=== PATIENT | female | born 2000 | race Caucasian/White ===

== ENCOUNTER 2022-03-30 16:02 | Outpatient (CLI) | payer MEDICAID, SELFPAY ==
[2022-03-30 22:13] LABS: TSH With Reflex to FT4* 0.855 uIU/mL (0.270-4.200)
== END 2022-03-30 16:03 | disposition home or self-care (01) ==
PROVIDERS: PCP Physician Assistant Medical; Visit Provider Physician Assistant Medical
DX: R14.0 Abdominal distension (gaseous) (principal); K59.00 Constipation, unspecified; N92.6 Irregular menstruation, unspecified
CPT/HCPCS: 83516; 84443

== ENCOUNTER 2022-04-01 17:01 | Outpatient (CLI) | payer MEDICAID, SELFPAY ==
--- NOTE | 2022-04-01 17:00 | CRLHL7_ITS ---
For Patients: As a result of the Century Cures Act, medical imaging exams and procedure reports are released immediately into your electronic medical record. You may view this report before your referring provider. If you have questions, please contact your health care provider. INDICATION: IRREGULAR MENSTRUATION COMPARISON: none TECHNIQUE: 2D preciado scale and color Doppler images were acquired of the pelvis using a transabdominal and transvaginal approach. FINDINGS: Sonographic images demonstrate a normal size and smooth outer contour of the uterus. Uterus measures 8.3 cm in length by 3.4 cm in AP diameter by 5.1 cm in transverse dimension. The myometrium has a normal uniform echotexture. The endometrial lining appears normal and measures 10 mm in composite thickness. The right ovary measures 4.6 x 1.8 x 2.2 cm in size and the left ovary measures 4.2 x 1.8 x 2.4 cm. The ovaries demonstrate normal arterial and venous blood flow on color Doppler analysis. There are no suspicious fluid collections within the cul-de-sac. IMPRESSION: Normal pelvic ultrasound. Dictated by Khanh Blood MD @ 04/02/2022 9:00:16 AM (Electronically Signed)
== END 2022-04-01 17:02 | disposition home or self-care (01) ==
PROVIDERS: PCP Physician Assistant Medical; Visit Provider Physician Assistant Medical
DX: N92.6 Irregular menstruation, unspecified (principal)
CPT/HCPCS: 76830; 76856; 93976

== ENCOUNTER 2023-01-25 17:31 | Outpatient (CLI) | payer MEDICAID, SELFPAY | END 2023-01-25 17:32 | disposition home or self-care (01) | PROVIDERS: PCP Physician Assistant Medical; Visit Provider Registered Nurse | DX: N92.6 Irregular menstruation, unspecified (principal); R53.83 Other fatigue; F41.9 Anxiety disorder, unspecified | CPT/HCPCS: 82306; 82607; 83498; 84146; 84270; 84402; 84403; 84443 ==

== ENCOUNTER 2023-05-06 14:47 | Outpatient (CLI) | payer MEDICAID, SELFPAY | END 2023-05-06 14:48 | disposition home or self-care (01) | PROVIDERS: PCP Physician Assistant Medical; Visit Provider Internal Medicine Cardiovascular Disease | DX: R00.2 Palpitations (principal); R53.83 Other fatigue; F41.9 Anxiety disorder, unspecified; K21.9 Gastro-esophageal reflux disease without esophagitis; Z79.899 Other long term (current) drug therapy | CPT/HCPCS: 82533; 82728 ==

== ENCOUNTER 2023-09-02 10:52 | Outpatient (CLI) | payer MEDICAID, SELFPAY ==
--- NOTE | 2023-09-02 11:00 | CRLHL7_ITS ---
For Patients: As a result of the Century Cures Act, medical imaging exams and procedure reports are released immediately into your electronic medical record. You may view this report before your referring provider. If you have questions, please contact your health care provider. INDICATION: BLOATING COMPARISON: 08.31.21 TECHNIQUE: Real time preciado scale imaging and color Doppler analysis was performed of the right upper quadrant. FINDINGS: The patient`s liver is of normal size and has uniform echogenicity. There is a normal appearance of the hepatic IVC and proximal abdominal aorta. There is no evidence of ascites. The gallbladder is of normal size and there is no evidence of intraluminal stones or sludge. The gallbladder wall measures 1.2 mm in thickness. The common bile duct is of normal size and measures 2.4 mm in diameter at the level of the andrew hepatis. The pancreas appears normal. There is no evidence of a stone or hydronephrosis within the right kidney. The right kidney measures 11.3 cm in length. IMPRESSION: Normal right upper quadrant ultrasound. Dictated by Khanh Blood MD @ 09/02/2023 1:22:35 PM (Electronically Signed)
== END 2023-09-02 10:53 | disposition home or self-care (01) ==
LOC: US 10:54
PROVIDERS: PCP Physician Assistant Medical; Visit Provider Internal Medicine Gastroenterology
DX: R14.0 Abdominal distension (gaseous) (principal)
CPT/HCPCS: 76705

== ENCOUNTER 2024-01-13 12:10 | Outpatient (CLI) | payer MEDICAID, SELFPAY ==
[2024-01-14 00:13] LABS: Chlamydia DNA Amplified* NOT DETECTED (No Detected); GC DNA Amplified* NOT DETECTED (No Detected)
== END 2024-01-13 12:11 | disposition home or self-care (01) ==
PROVIDERS: PCP Family Medicine; Visit Provider Family Medicine
DX: R30.0 Dysuria (principal); F41.9 Anxiety disorder, unspecified; R53.83 Other fatigue; F98.8 Other specified behavioral and emotional disorders with onset usually occurring in childhood and adolescence; Z11.3 Encounter for screening for infections with a predominantly sexual mode of transmission
CPT/HCPCS: 80053; 86592; 86703; 87491; 87591

== ENCOUNTER 2024-05-23 23:43 | Emergency (ER) | payer MEDICAID, SELFPAY ==
[2024-05-23 23:53] VITALS: BP 117/56; PULSE 71; RESP 16; TEMP 36.3; O2SAT 99; BMI 19.8
--- NOTE | 2024-05-23 23:59 | ED_ITS ---
HPI - Abdominal Pain General Time Seen by Provider: 23:59 Date Seen: 05/23/24 Chief Complaint: Abdominal Pain Stated Complaint: upper abdominal pain Time Seen by Provider: 05/23/24 23:59 Source: patient, RN notes reviewed and old records reviewed Mode of arrival: ambulatory Limitations: no limitations History of Present Illness HPI narrative: 33-year-old female who presents today with upper abdominal pain. Started this evening, has been vomiting as well. Pain is in the right upper quadrant, radiates distally little bit in the back. Worse with movement, does wax and wane. Had some urinary frequency earlier in the day but no hematuria or dysuria. Related Data Previous Rx's ?Medication ?Instructions ?Recorded norgestrel 0.075 mg tablet 1 tab PO QDAY #84 tabs 01/13/24 dextroamphetamine-amphetamine ER 10 mg PO QAM #30 caps 05/03/24 10 mg 24hr capsule,extend release (Adderall XR) dextroamphetamine-amphetamine ER 15 mg PO QAM #30 caps 05/03/24 15 mg 24hr capsule,extend release Allergies Allergy/AdvReac Type Severity Reaction Status Date / Time No Known Allergies Allergy Unknown Verified 01/13/24 11:53 PFSH [facility] Medical History (Updated 05/24/24 @ 01:27 by Manan Lobo MD) GERD (gastroesophageal reflux disease) ?K21.9 - Gastro-esophageal reflux disease without esophagitis (ICD-10) Family History Mother Anemia Family/Other Stroke High blood pressure Breast cancer Uncle Diabetes FH: mental illness Grandmother FH: mental illness Other Alcohol dependence Social History Narrative: Depo-Provera contraceptive status Does not drink alcohol Does not use illicit drugs Nonsmoker Smoking Status: Former smoker How often do you have a drink containing alcohol: never AUDIT-C Alcohol total score: 0 Non-prescribed substance use: denies use Little interest or pleasure in doing things: not at all Feeling down, depressed, or hopeless: not at all Exam Narrative: Exam Narrative: General: Well-developed and well-nourished, no acute distress Head: Atraumatic and normocephalic Eyes: Pupils are equal reactive, extraocular motions intact, conjunctiva clear ENT: External nose and ears are normal, posterior pharynx without erythema or exudate Neck: No midline cervical tenderness, full spontaneous range of motion the neck, trachea midline, no adenopathy Heart: Regular rate and rhythm no murmurs or thrills Lungs: Clear to auscultation bilaterally without wheezes or crackles Abdomen: Right upper quadrant tenderness, right CVA tenderness Musculoskeletal: No tenderness, deformity, or edema Neurologic: Awake, alert, and oriented x3, no gross focal neurologic deficits, cranial nerves intact as tested Psych: Mood and affect are appropriate Skin: No rashes Const: Vital Signs, click to edit/add: Vital Signs - 24 hr 05/23/24 23:53 05/24/24 00:16 Temperature 97.3 F L 97.3 F L Pulse Rate [Pulse Oximeter] 71 Respiratory Rate 16 Blood Pressure [Ri ght Upper Arm] 117/56 L Pulse Oximetry 99 Oxygen Delivery Me thod Room Air Course Course ED Course: Patient seen examined, reviewed prior office visit from July 2023 which was abdominal distension thought to be related to constipation and patient was treated symptomatically. Patient presents today with right upper quadrant pain. She has tenderness on exam but also CVA tenderness and says the pain does wonder back little bit. Initial complaint sounds most like biliary colic or acute cholecystitis insert early exam would be consistent without, patient does have CVA tenderness which could be from a kidney stone as well. Labs ordered CT scan ordered initially, consider right upper quadrant ultrasound depending on the labs and clinical course. Reevaluation(s) Time of Reevaluation #1: 00:43 Reevaluation #1: Labs independently interpreted by me with normal cbc, urinalysis with trace ketones and 3+ blood, patient is currently menstruating. CT scan of the abdomen and pelvis independently interpreted by me does not demonstrate acute obstructing stone, gallbladder appears well decompressed. Patient with increased pain and return of vomiting after coming back from CT, Dilaudid IV is ordered Time of Reevaluation #2: 00:48 Reevaluation #2: Labs independently interpreted by me with normal better panel, lipase minimally elevated at 306, just outside normal range. Time of Reevaluation #3: 01:24 Reevaluation #3: Reviewed radiology interpretation of CT scan which demonstrates 3 mm right UVJ stone. The patient recheck, she is pain-free now. Suspect that her spiking pain and nausea after CT was from passage of the stone in the bladder. We discussed etiology of kidney stones and treatment. Stable for discharge Vital Signs Vital signs: Initial Vital Signs Temperature 97.3 F L 05/23/24 23:53 Temperature Source Temporal Artery Scan 05/23/24 23:53 Pulse Rate 71 05/23/24 23:53 Respiratory Rate 16 05/23/24 23:53 Blood Pressure 117/56 L 05/23/24 23:53 Blood Pressure Mean 76 05/23/24 23:53 Blood Pressure Position Sitting 05/23/24 23:53 Pulse Oximetry 99 05/23/24 23:53 Oxygen Delivery Method Room Air 05/23/24 23:53 Vital Signs Temperature 97.3 F L 05/23/24 23:53 Pulse Rate 71 05/23/24 23:53 Respiratory Rate 16 05/23/24 23:53 Blood Pressure 117/56 L 05/23/24 23:53 Pulse Oximetry 99 05/23/24 23:53 Oxygen Delivery Method Room Air 05/23/24 23:53 Temperature 97.3 F L 05/24/24 00:16 Pulse Rate 71 05/23/24 23:53 Respiratory Rate 16 05/23/24 23:53 Blood Pressure 117/56 L 05/23/24 23:53 Pulse Oximetry 99 05/23/24 23:53 Oxygen Delivery Method Room Air 05/23/24 23:53 Medications Administered Medications: Discontinued Medications Generic Name Dose Route Start Last Admin Trade Name Freq PRN Reason Stop Dose Admin Ketorolac Tromethamine 15 mg 05/24/24 00:11 05/24/24 00:16 Ketorolac 15 Mg/Ml Inj IVP 05/24/24 00:12 15 mg ONCE ONE Administration Ondansetron HCl 4 mg 05/24/24 00:11 05/24/24 00:16 Ondansetron 2 Mg/Ml Inj IVP 05/24/24 00:12 4 mg ONCE ONE Administration MDM - Abdominal Pain Lab Data Labs: Lab Results 05/24/24 05/24/24 Range/Units 00:14 00:19 WBC 8.17 (4.50-11.00) K/uL RBC 4.15 (4.00-5.20) m/uL Hgb 13.0 (12.0-16.0) gm/dL Hct 39.6 (33.0-51.0) % MCV 95 (80-100) fL MCH 31 (26-34) pg MCHC 33 (32-36) gm/dL RDW Coeff of Amanda 12.2 (11.5-15.5) % Plt Count 251 (140-440) K/uL Neut % (Auto) 54.7 (42.0-72.0) % Lymph % (Auto) 37.6 (20-44) % [place] % (Auto) 5.1 (0.0-11.0) % Eos % (Auto) 1.5 (0.0-7.0) % Baso % (Auto) 0.4 (0.0-3.0) % Neut # (Auto) 4.47 (1.7-7.0) K/uL Lymph # (Auto) 3.07 H (0.90-2.90) K/uL [place] # (Auto) 0.40 (0.00-0.90) K/UL Eos # (Auto) 0.12 (0.00-0.50) K/uL Baso # (Auto) 0.03 (0.00-0.30) K/uL Abs Immat Gran (auto) 0.06 (0.00-0.30) K/uL Imm/Tot Granulo (auto) 0.7 % Sodium 140 (135-149) mmol/L Potassium 3.6 (3.6-5.1) mmol/L Chloride 102 (96-114) mmol/L Carbon Dioxide 27 (20-32) mmol/L Anion Gap 11 (7-15) mEq/L BUN 15 (5-24) mg/dL Creatinine 0.9 (0.5-1.5) mg/dL Estimated Creat Clear 92.04 Estimated GFR 93 ml/min Glucose 111 (60-115) mg/dL Calcium 9.7 (8.4-10.6) mg/dL Magnesium 2.0 (1.5-2.6) mg/dL Total Bilirubin 0.4 (0.1-1.5) mg/dL Direct Bilirubin 0.1 (0.0-0.5) mg/dL AST 21 (12-35) U/L ALT 15 (4-35) U/L Alkaline Phosphatase 53 (40-150) U/L Total Protein 8.1 (6.0-8.3) g/dL Albumin 4.8 (3.3-5.0) g/dL Lipase 306 H (23-300) U/L Urine Color Dark yellow (Yellow) Urine Appearance Slightly Cloudy A (Clear) Urine pH 6.0 (5.0-8.5) Ur Specific [place] >= 1.030 (1.000-1.030) Urine Protein 1+ A (Negative) Urine Glucose (UA) Negative (Negative) Urine Ketones Trace A (Negative) Urine Blood 3+ A (Negative) Urine Nitrite Negative (Negative) Urine Bilirubin Negative (Negative) Urine Urobilinogen 0.2 (0.2-1.0) Ur Leukocyte Esterase Negative (Negative) Urine RBC 5-10 A (0-2) Urine WBC 0-2 (0-5) Ur Squamous Epith Cells Few (None-Few) Urine Bacteria Few A (None) Urine Mucus Few A (None) Urine HCG, Qual Negative (Negative) Discharge Plan Discharge Clinical Impression: Calculus of distal right ureter Patient Disposition: Home, Self-Care Condition: Stable Instructions: How to Strain Your Urine (ED), Ureteral Stones (ED) Additional Instructions: Tylenol and ketorolac for pain Zofran for nausea Oxycodone as needed for more severe pain Follow-up with your primary care provider next week Strain urine and take the stone to your clinic if you are able to catch it Drink to thirst Activity Level: Activity as Tolerated Discharge Diet: Regular Prescriptions: No Action norgestrel 0.075 mg tablet 1 tab PO QDAY Qty: 84 3RF dextroamphetamine-amphetamine 15 mg capsule,extended release 24hr 15 mg PO QAM Qty: 30 0RF dextroamphetamine-amphetamine [Adderall XR] 10 mg capsule,extended release 24hr 10 mg PO QAM Qty: 30 0RF Follow Up/Referrals: Natalia Peterson MD [Primary Care Provider] - Stand Alone Forms: [employer] Info Instructions
--- NOTE | 2024-05-24 00:14 | CRLHL7_ITS ---
For Patients: As a result of the Century Cures Act, medical imaging exams and procedure reports are released immediately into your electronic medical record. You may view this report before your referring provider. If you have questions, please contact your health care provider. INDICATION: Right abdominal/flank pain. TECHNIQUE: CT abdomen and pelvis acquired with 100 cc Omnipaque 350 IV contrast. COMPARISON: None. FINDINGS: Lower chest: Unremarkable. Liver: Unremarkable. Normal in size and attenuation. No suspicious masses. Gallbladder and bile ducts: Unremarkable. No stones or inflammation. No biliary dilatation. Pancreas: Unremarkable. No mass or inflammation. Spleen: Unremarkable. Normal in size. No masses. Adrenal glands: Unremarkable. No nodules. Kidneys: Mild right-sided hydroureteronephrosis secondary to 3 millimeter obstructing right UVJ stone. GI tract: Unremarkable. Normal in caliber. No sign of mass or inflammation. Normal appendix. Vasculature: Abdominal aorta is normal in caliber. Mesenteric arteries are patent. Lymph nodes: No lymphadenopathy. Peritoneum/Abdominal Wall: Unremarkable. No sign of mass or infiltration. No free air or significant free fluid. Pelvis: Unremarkable. Bones: Unremarkable for age. IMPRESSION: Mild right-sided hydroureteronephrosis secondary to 3 millimeter obstructing right UVJ stone. Normal appendix. Please note that all CT scans at this facility use dose modulation, iterative reconstruction, and/or weight-based dosing when appropriate to reduce radiation dose to as low as reasonably achievable. Dictated by Dustin Gerardo MD @ 05/24/2024 1:20:04 AM (Electronically Signed)
[2024-05-24 00:16] VITALS: TEMP 36.3
[2024-05-24] MEDS: ONDANSETRON 2 MG/ML inj 4 MG IVP (00:16)
[2024-05-24] MEDS: KETOROLAC 15 MG/ML inj IVP (00:16)
[2024-05-24 00:17] LABS: Basophils Absolute Auto 0.03 K/uL (0.00-0.30); Basophils Percent Auto 0.4 % (0.0-3.0); Eosinophils Absolute Auto 0.12 K/uL (0.00-0.50); Eosinophils Percent Auto 1.5 % (0.0-7.0); Hematocrit 39.6 % (33.0-51.0); Immature Granulocytes Abs Auto 0.06 K/uL (0.00-0.30); Immature Granulocytes Pct Auto 0.7 %; Lymphocytes Absolute Auto 3.07 K/uL (0.90-2.90); Lymphocytes Percent Auto 37.6 % (20-44); Mean Corpuscular HGB Conc 33 gm/dL (32-36); Mean Corpuscular Hemoglobin 31 pg (26-34); Mean Corpuscular Volume 95 fL (80-100); Monocytes Percent Auto 5.1 % (0.0-11.0); Neutrophils Absolute Auto 4.47 K/uL (1.7-7.0); Neutrophils Percent Auto 54.7 % (42.0-72.0); Platelet Count* 251 K/uL (140-440); RDW Coefficient of Variation % 12.2 % (11.5-15.5); Red Blood Count 4.15 m/uL (4.00-5.20); White Blood Count* 8.17 K/uL (4.50-11.00)
[2024-05-24 00:21] LABS: Appearance Urine Slightly Cloudy (Clear); Bilirubin Urine Negative (Negative); Blood Urine 3+ (Negative); Color Urine Dark yellow (Yellow); Glucose Urine Negative (Negative); Ketones Urine Trace (Negative); Leukocyte Esterase Urine Negative (Negative); Nitrite Urine Negative (Negative); Protein Urine 1+ (Negative); Specific Gravity Urine >= 1.030 (1.000-1.030); Urobilinogen Urine 0.2 (0.2-1.0)
[2024-05-24 00:22] LABS: WBC Urine 0-2 (0-5)
[2024-05-24 00:23] LABS: Bacteria Urine Few; Mucus Urine Few; Squamous Epithelial Cell Urine Few (None-Few); Ur HCG Qualitative* Negative (Negative)
[2024-05-24 00:35] LABS: Albumin* 4.8 g/dL (3.3-5.0)
[2024-05-24 00:36] LABS: Chloride* 102 mmol/L (96-114); Potassium* 3.6 mmol/L (3.6-5.1); Sodium* 140 mmol/L (135-149)
[2024-05-24 00:37] LABS: Slide Review Reflex No
[2024-05-24 00:38] LABS: Alkaline Phosphatase* 53 U/L (40-150); Anion Gap 11 mEq/L (7-15); Aspartate Amino Transferase* 21 U/L (12-35); Bilirubin Direct* 0.1 mg/dL (0.0-0.5); Bilirubin Total* 0.4 mg/dL (0.1-1.5); Blood Urea Nitrogen* 15 mg/dL (5-24); Carbon Dioxide* 27 mmol/L (20-32); Creatinine* 0.9 mg/dL (0.5-1.5); Est. Creatinine Clearance* 92.04; Estimated Glomerular Filt Rate 93 ml/min; Total Protein* 8.1 g/dL (6.0-8.3)
[2024-05-24 00:39] LABS: Alanine Aminotransferase* 15 U/L (4-35); Calcium* 9.7 mg/dL (8.4-10.6); Glucose* 111 mg/dL (60-115); Lipase* 306 U/L (23-300)
[2024-05-24 01:33] VITALS: TEMP 36.7
[2024-05-24 01:36] VITALS: BP 120/74; PULSE 75; RESP 16; TEMP 36.7; O2SAT 99
== END 2024-05-24 01:37 | disposition home or self-care (01) ==
PROVIDERS: Emergency Provider Family Medicine; PCP Family Medicine
DX: N20.1 Calculus of ureter (principal)
CPT/HCPCS: 36415; 74177; 80048; 80076; 81001; 81025; 83690; 83735; 85025; 87086; 96374; 96375; 99284; J1885; J2405; Q9967

== ENCOUNTER 2024-05-25 10:26 | Emergency (ER) | payer MEDICAID, SELFPAY ==
[2024-05-25 10:33] VITALS: BP 131/80; PULSE 92; RESP 20; TEMP 37.2; O2SAT 98; BMI 19.8
--- NOTE | 2024-05-25 10:44 | ED_ITS ---
HPI - Abdominal Pain General Time Seen by Provider: 10:44 Date Seen: 05/25/24 Chief Complaint: Abdominal Pain Stated Complaint: Abdominal Pain Time Seen by Provider: 05/25/24 10:44 Source: patient, RN notes reviewed and old records reviewed Mode of arrival: ambulatory Limitations: no limitations History of Present Illness HPI narrative: 23-year-old female who presents today with abdominal pain. Patient was recently seen in the emergency department and diagnosed with distal ureteral stone in discharged with medication up with pain. Returns today with continued pain. Patient was doing well yesterday, then this morning about 2 hours prior to coming the emergency department pain increased again. Has not been taking anything for this, has oxycodone at home but did not take it as she was not at home when pain returned Related Data Previous Rx's ?Medication ?Instructions ?Recorded norgestrel 0.075 mg tablet 1 tab PO QDAY #84 tabs 01/13/24 dextroamphetamine-amphetamine ER 10 mg PO QAM #30 caps 05/03/24 10 mg 24hr capsule,extend release (Adderall XR) dextroamphetamine-amphetamine ER 15 mg PO QAM #30 caps 05/03/24 15 mg 24hr capsule,extend release Allergies Allergy/AdvReac Type Severity Reaction Status Date / Time No Known Allergies Allergy Unknown Verified 01/13/24 11:53 [facility] Medical History (Updated 05/25/24 @ 14:46 by Manan Lobo MD) GERD (gastroesophageal reflux disease) ?K21.9 - Gastro-esophageal reflux disease without esophagitis (ICD-10) Family History Mother Anemia Family/Other Stroke High blood pressure Breast cancer Uncle Diabetes FH: mental illness Grandmother FH: mental illness Other Alcohol dependence Social History Narrative: Depo-Provera contraceptive status Does not drink alcohol Does not use illicit drugs Nonsmoker Smoking Status: Former smoker Do you use any of these nicotine containing products: None How often do you have a drink containing alcohol: never How often do you have six or more drinks on one occasion: Never AUDIT-C Alcohol total score: 0 Non-prescribed substance use: denies use Little interest or pleasure in doing things: not at all Feeling down, depressed, or hopeless: not at all service: No Exam Narrative: Exam Narrative: General: Well-developed and well-nourished, no acute distress Head: Atraumatic and normocephalic Eyes: Pupils are equal reactive, extraocular motions intact, conjunctiva clear ENT: External nose and ears are normal, posterior pharynx without erythema or exudate Neck: No midline cervical tenderness, full spontaneous range of motion the neck, trachea midline, no adenopathy Heart: Regular rate and rhythm no murmurs or thrills Lungs: Clear to auscultation bilaterally without wheezes or crackles Abdomen: Soft, right lower quadrant and right CVA tenderness, nondistended with active bowel sounds Musculoskeletal: No tenderness, deformity, or edema Neurologic: Awake, alert, and oriented x3, no gross focal neurologic deficits, cranial nerves intact as tested Psych: Mood and affect are appropriate Skin: No rashes Const: Vital Signs, click to edit/add: Vital Signs - 24 hr 05/25/24 10:33 Temperature 98.9 F Pulse Rate [Pulse Oximeter] 92 Respiratory Rate 20 Blood Pressure [Ri ght Upper Arm] 131/80 Pulse Oximetry 98 Oxygen Delivery Me thod Room Air Course Course ED Course: Patient seen examined, reviewed CT scan from May 24 which showed a 3 mm distal UVJ stone with mild hydronephrosis. Patient presents with return of her pain after doing pretty well yesterday, has not taken anything for this. Toradol, Zofran ordered. Given known distal UVJ stone on the right, would not repeat CT abdomen pelvis this time. Reevaluation(s) Time of Reevaluation #1: 14:43 Reevaluation #1: Labs ordered and independently interpreted by me with normal CBC, normal basic panel. Urinalysis with 2+ ketones as well as findings of microscopic hematuria, contaminated with squamous cells but no evidence for infection. Patient is stable for discharge with continued symptom management and outpatient follow-up with urology as previously discussed. Vital Signs Vital signs: Initial Vital Signs Temperature 98.9 F 05/25/24 10:33 Temperature Source Temporal Artery Scan 05/25/24 10:33 Pulse Rate 92 05/25/24 10:33 Pulse Rhythm Regular 05/25/24 10:33 Respiratory Rate 20 05/25/24 10:33 Blood Pressure 131/80 05/25/24 10:33 Blood Pressure Mean 97 10/18/24 10:33 Blood Pressure Position Supine 05/25/24 10:33 Pulse Oximetry 98 05/25/24 10:33 Oxygen Delivery Method Room Air 05/25/24 10:33 Vital Signs Temperature 98.9 F 05/25/24 10:33 Pulse Rate 92 05/25/24 10:33 Respiratory Rate 20 05/25/24 10:33 Blood Pressure 131/80 05/25/24 10:33 Pulse Oximetry 98 05/25/24 10:33 Oxygen Delivery Method Room Air 05/25/24 10:33 Temperature 98.9 F 05/25/24 10:33 Pulse Rate 92 05/25/24 10:33 Respiratory Rate 20 05/25/24 10:33 Blood Pressure 131/80 05/25/24 10:33 Pulse Oximetry 98 05/25/24 10:33 Oxygen Delivery Method Room Air 05/25/24 10:33 Medications Administered Medications: Discontinued Medications Generic Name Dose Route Start Last Admin Trade Name Freq PRN Reason Stop Dose Admin Ketorolac Tromethamine 15 mg 05/25/24 10:54 05/25/24 11:03 Ketorolac 15 Mg/Ml Inj IVP 05/25/24 10:55 15 mg ONCE ONE Administration Ondansetron HCl 4 mg 05/25/24 10:54 05/25/24 11:03 Ondansetron 2 Mg/Ml Inj IVP 05/25/24 10:55 4 mg ONCE ONE Administration Oxycodone HCl 5 mg 05/25/24 14:11 05/25/24 14:31 Oxycodone 5 Mg Tablet PO 05/25/24 14:12 5 mg ONCE ONE Administration MDM - Abdominal Pain Lab Data Labs: Lab Results 05/25/24 05/25/24 Range/Units 11:11 13:00 WBC 6.24 (4.50-11.00) K/uL RBC 4.06 (4.00-5.20) m/uL Hgb 12.7 (12.0-16.0) gm/dL Hct 38.9 (33.0-51.0) % MCV 96 (80-100) fL MCH 31 (26-34) pg MCHC 33 (32-36) gm/dL RDW Coeff of Amanda 12.1 (11.5-15.5) % Plt Count 235 (140-440) K/uL Neut % (Auto) 70.4 (42.0-72.0) % Lymph % (Auto) 21.5 (20-44) % [place] % (Auto) 5.6 (0.0-11.0) % Eos % (Auto) 1.3 (0.0-7.0) % Baso % (Auto) 1.0 (0.0-3.0) % Neut # (Auto) 4.40 (1.7-7.0) K/uL Lymph # (Auto) 1.34 (0.90-2.90) K/uL [place] # (Auto) 0.30 (0.00-0.90) K/UL Eos # (Auto) 0.08 (0.00-0.50) K/uL Baso # (Auto) 0.06 (0.00-0.30) K/uL Abs Immat Gran (auto) 0.01 (0.00-0.30) K/uL Imm/Tot Granulo (auto) 0.2 % Sodium 137 (135-149) mmol/L Potassium 4.0 (3.6-5.1) mmol/L Chloride 103 (96-114) mmol/L Carbon Dioxide 24 (20-32) mmol/L Anion Gap 10 (7-15) mEq/L BUN 13 (5-24) mg/dL Creatinine 0.7 (0.5-1.5) mg/dL Estimated Creat Clear 118.34 Estimated GFR 126 ml/min Glucose 102 (60-115) mg/dL Calcium 9.4 (8.4-10.6) mg/dL Urine Color Yellow (Yellow) Urine Appearance Cloudy A (Clear) Urine pH 5.5 (5.0-8.5) Ur Specific [place] 1.025 (1.000-1.030) Urine Protein 1+ A (Negative) Urine Glucose (UA) Negative (Negative) Urine Ketones 2+ A (Negative) Urine Blood 3+ A (Negative) Urine Nitrite Negative (Negative) Urine Bilirubin 1+ A (Negative) Urine Urobilinogen 0.2 (0.2-1.0) Ur Leukocyte Esterase Negative (Negative) Urine RBC 10-25 A (0-2) Urine WBC 2-5 (0-5) Ur Squamous Epith Cells Moderate A (None-Few) Calcium Oxalate Crystal Moderate A (None) Amorphous Sediment Many A (None) Other Sediment Moderate A (None) Urine Bacteria Few A (None) Discharge Plan Discharge Clinical Impression: Right distal ureteral calculus Patient Disposition: Home, Self-Care Condition: Stable Instructions: Ureteral Stones (ED) Additional Instructions: Tylenol every 6 hour alternating every 3 hours with ibuprofen every 6 hours Follow-up with urology as discussed at your last visit Activity Level: Activity as Tolerated Discharge Diet: Regular Prescriptions: No Action norgestrel 0.075 mg tablet 1 tab PO QDAY Qty: 84 3RF dextroamphetamine-amphetamine 15 mg capsule,extended release 24hr 15 mg PO QAM Qty: 30 0RF dextroamphetamine-amphetamine [Adderall XR] 10 mg capsule,extended release 24hr 10 mg PO QAM Qty: 30 0RF Follow Up/Referrals: Natalia Peterson MD [Primary Care Provider] - Stand Alone Forms: [employer] Info Instructions
[2024-05-25] MEDS: KETOROLAC 15 MG/ML inj IVP (11:03)
[2024-05-25] MEDS: ONDANSETRON 2 MG/ML inj 4 MG IVP (11:03)
[2024-05-25 11:21] LABS: Basophils Absolute Auto 0.06 K/uL (0.00-0.30); Eosinophils Absolute Auto 0.08 K/uL (0.00-0.50); Eosinophils Percent Auto 1.3 % (0.0-7.0); Hematocrit 38.9 % (33.0-51.0); Hemoglobin* 12.7 gm/dL (12.0-16.0); Immature Granulocytes Abs Auto 0.01 K/uL (0.00-0.30); Immature Granulocytes Pct Auto 0.2 %; Lymphocytes Absolute Auto 1.34 K/uL (0.90-2.90); Lymphocytes Percent Auto 21.5 % (20-44); Mean Corpuscular HGB Conc 33 gm/dL (32-36); Mean Corpuscular Hemoglobin 31 pg (26-34); Mean Corpuscular Volume 96 fL (80-100); Monocytes Percent Auto 5.6 % (0.0-11.0); Neutrophils Percent Auto 70.4 % (42.0-72.0); Platelet Count* 235 K/uL (140-440); RDW Coefficient of Variation % 12.1 % (11.5-15.5); Red Blood Count 4.06 m/uL (4.00-5.20); White Blood Count* 6.24 K/uL (4.50-11.00)
[2024-05-25 11:28] LABS: Slide Review Reflex No
[2024-05-25 11:33] LABS: Chloride* 103 mmol/L (96-114)
[2024-05-25 11:34] LABS: Sodium* 137 mmol/L (135-149)
[2024-05-25 11:36] LABS: Anion Gap 10 mEq/L (7-15); Carbon Dioxide* 24 mmol/L (20-32); Creatinine* 0.7 mg/dL (0.5-1.5); Est. Creatinine Clearance* 118.34; Estimated Glomerular Filt Rate 126 ml/min
[2024-05-25 11:37] LABS: Blood Urea Nitrogen* 13 mg/dL (5-24); Calcium* 9.4 mg/dL (8.4-10.6); Glucose* 102 mg/dL (60-115)
[2024-05-25 14:10] LABS: Appearance Urine Cloudy (Clear); Bilirubin Urine 1+ (Negative); Blood Urine 3+ (Negative); Color Urine Yellow (Yellow); Glucose Urine Negative (Negative); Ketones Urine 2+ (Negative); Leukocyte Esterase Urine Negative (Negative); Nitrite Urine Negative (Negative); Protein Urine 1+ (Negative); Specific Gravity Urine 1.025 (1.000-1.030); Urobilinogen Urine 0.2 (0.2-1.0); pH Urine 5.5 (5.0-8.5)
[2024-05-25] MEDS: OXYCODONE 5 MG TABLET PO (14:31)
[2024-05-25 14:37] LABS: Amorphous Sediment Urine Many; Bacteria Urine Few; Other Sediment Urine Moderate; Squamous Epithelial Cell Urine Moderate (None-Few)
[2024-05-25 14:39] LABS: Calcium Oxalate Crystals Urine Moderate
== END 2024-05-25 15:00 | disposition home or self-care (01) ==
PROVIDERS: Emergency Provider Family Medicine; PCP Family Medicine
DX: N20.1 Calculus of ureter (principal)
CPT/HCPCS: 36415; 80048; 81001; 85025; 87086; 96374; 96375; 99284; A9270; J1885; J2405

== ENCOUNTER 2024-05-26 18:14 | Emergency (ER) | payer MEDICAID, SELFPAY ==
[2024-05-26 18:24] VITALS: BP 114/72; PULSE 64; TEMP 37.1; O2SAT 98; BMI 19.8
--- NOTE | 2024-05-26 20:27 | ED_ITS ---
HPI - General Adult General Chief complaint: Abdominal Pain Stated complaint: upper abdominal pain Time Seen by Provider: 05/26/24 19:46 Source: patient Mode of arrival: ambulatory Limitations: no limitations History of Present Illness HPI narrative: A 23-year-old female presenting today with continued right flank pain. Patient was seen Tuesday and Tuesday of this week with flank pain. She was diagnosed with a 3 mm ureteral stone. She states that when the pain comes it is unbearable. It does come in waves. She is concerned that it continues until today which is Tuesday and she is not better yet. She has not been vomiting recently. She denies any fevers. The pain is moving, is now further down into the abdomen closer to the groin. She is taking Toradol 1 tablet every 6 hours and ibuprofen 400 mg p.r.n. The pain is not getting worse, it simply is not getting better. Related Data Previous Rx's ?Medication ?Instructions ?Recorded norgestrel 0.075 mg tablet 1 tab PO QDAY #84 tabs 01/13/24 dextroamphetamine-amphetamine ER 10 mg PO QAM #30 caps 05/03/24 10 mg 24hr capsule,extend release (Adderall XR) dextroamphetamine-amphetamine ER 15 mg PO QAM #30 caps 05/03/24 15 mg 24hr capsule,extend release tamsulosin 0.4 mg capsule (Flomax) 0.4 mg PO DAILY #14 caps 05/26/24 Allergies Allergy/AdvReac Type Severity Reaction Status Date / Time No Known Allergies Allergy Unknown Verified 01/13/24 11:53 Review of Systems Status of ROS: Reports: 10 or more systems reviewed and unremarkable except as noted in History and below [facility] Medical History GERD (gastroesophageal reflux disease) ?K21.9 - Gastro-esophageal reflux disease without esophagitis (ICD-10) Family History Mother Anemia Family/Other Stroke High blood pressure Breast cancer Uncle Diabetes FH: mental illness Grandmother FH: mental illness Other Alcohol dependence Social History Narrative: Depo-Provera contraceptive status Does not drink alcohol Does not use illicit drugs Nonsmoker Smoking Status: Former smoker Do you use any of these nicotine containing products: None How often do you have a drink containing alcohol: never How often do you have six or more drinks on one occasion: Never AUDIT-C Alcohol total score: 0 Non-prescribed substance use: denies use Little interest or pleasure in doing things: not at all Feeling down, depressed, or hopeless: not at all service: No Exam Narrative: Exam Narrative: Well-nourished well-developed patient, tearful. Alert and oriented. Answers questions appropriately. Thoughts are goal oriented and rational. No tangential or magical thinking noted. Patient speaks in full sentences without needing to catch her breath. During our conversation she does become less tearful. She is able to have a conversation without distress. She states that her pain at the moment is not terrible. Patient has normal vital signs and she is afebrile. HEENT: Normocephalic atraumatic. Pupils are equally round reactive to light. Extraocular muscles are intact. Conjunctivae are moist without any icterus noted. Moist mucous membranes. Abdomen: Soft and nontender nondistended with normal bowel sounds. No guarding or rebound. Positive right-sided CVA tenderness. Extremities: Bilateral lower extremities are without edema. Skin: Well perfused without any obvious rashes. No evidence of dehydration noted. Const: Vital Signs, click to edit/add: Vital Signs - 24 hr 05/26/24 18:24 Temperature 98.8 F Pulse Rate [Pulse Oximeter] 64 Blood Pressure [Ri ght Upper Arm] 114/72 Pulse Oximetry 98 Oxygen Delivery Me thod Room Air Course Course ED Course: Did repeat her IM dose of Toradol which seems to be the thing that helps her the most. She does have antiemetics at home which she has not needed. She will continue to use Toradol as prescribed. We discussed Tylenol. We discussed heating pad. We also discussed the possibility of admission. Patient states that this time she does not feel that admission is necessary. Given that her pain is not changing did not feel it was necessary to do any blood work or imaging today. We discussed that if she develops a fever, vomiting or pain that does not go away and she can return to the ER and we can consider admission for pain management. Again, patient states that she does not feel this is necessary at this time and she feels comfortable managing this at home. We discussed that the pain can last several weeks before a stone passes, expectations were revisited. Vital Signs Vital signs: Initial Vital Signs Temperature 98.8 F 05/26/24 18:24 Temperature Source Temporal Artery Scan 05/26/24 18:24 Pulse Rate 64 05/26/24 18:24 Pulse Rhythm Regular 05/26/24 18:24 Blood Pressure 114/72 05/26/24 18:24 Blood Pressure Mean 86 05/26/24 18:24 Blood Pressure Position Sitting 05/26/24 18:24 Pulse Oximetry 98 05/26/24 18:24 Oxygen Delivery Method Room Air 05/26/24 18:24 Vital Signs Temperature 98.8 F 05/26/24 18:24 Pulse Rate 64 05/26/24 18:24 Blood Pressure 114/72 05/26/24 18:24 Pulse Oximetry 98 05/26/24 18:24 Oxygen Delivery Method Room Air 05/26/24 18:24 Temperature 98.8 F 05/26/24 18:24 Pulse Rate 64 05/26/24 18:24 Blood Pressure 114/72 05/26/24 18:24 Pulse Oximetry 98 05/26/24 18:24 Oxygen Delivery Method Room Air 05/26/24 18:24 Medical Decision Making MDM Narrative Medical decision making narrative: 23-year-old female with kidney stone. Plan per above. Discharge Plan Discharge Clinical Impression: Calculus of distal right ureter Patient Disposition: Home, Self-Care Condition: Stable Additional Instructions: Continue Toradol as prescribed. Okay to add Tylenol 1000 mg 3 times a day. Okay to use a heating pad to your side as needed, do not apply heat directly to the skin into not heat for more than 20 minutes at a time. Would recommend not taking ibuprofen and Toradol at the same time. When you run out of Toradol and still need pain medication, then you can start taking ibuprofen 600-800 mg every 6 hours as needed. I have also prescribed you a medication called Flomax which can help relax the muscles of the ureter and bladder to help your stone pass faster. If you cannot tolerate your pain, you develop a fever or vomiting and you can not keep down your pain medications then you should return to the emergency room. Activity Level: No Restrictions Discharge Diet: Regular Prescriptions: New tamsulosin [Flomax] 0.4 mg capsule 0.4 mg PO DAILY Qty: 14 0RF No Action norgestrel 0.075 mg tablet 1 tab PO QDAY Qty: 84 3RF dextroamphetamine-amphetamine 15 mg capsule,extended release 24hr 15 mg PO QAM Qty: 30 0RF dextroamphetamine-amphetamine [Adderall XR] 10 mg capsule,extended release 24hr 10 mg PO QAM Qty: 30 0RF Follow Up/Referrals: Natalia Peterson MD [Primary Care Provider] - Stand Alone Forms: [employer] Info Instructions
[2024-05-26] MEDS: KETOROLAC 30 MG/ML inj 60 MG IM (20:42)
== END 2024-05-26 20:47 | disposition home or self-care (01) ==
PROVIDERS: Emergency Provider Family Medicine; PCP Family Medicine
DX: N20.2 Calculus of kidney with calculus of ureter (principal)
CPT/HCPCS: 96372; 99284; J1885

== ENCOUNTER 2024-09-28 15:07 | Outpatient (CLI) | payer MEDICAID, SELFPAY | END 2024-09-28 15:08 | disposition home or self-care (01) | PROVIDERS: PCP Family Medicine; Visit Provider Family Medicine | DX: R42 Dizziness and giddiness (principal); R53.83 Other fatigue; R14.0 Abdominal distension (gaseous); K21.9 Gastro-esophageal reflux disease without esophagitis | CPT/HCPCS: 80053; 82306; 82728; 83735; 84443; 86258 ==

== ENCOUNTER 2025-06-03 13:30 | Outpatient (CLI) | payer MEDICAID, SELFPAY ==
[2025-06-03 18:06] LABS: Chlamydia DNA Amplified* NOT DETECTED (No Detected); GC DNA Amplified* NOT DETECTED (No Detected)
[2025-06-05 15:34] LABS: Pap Test Digital Imaging Done
== END 2025-06-03 13:31 | disposition home or self-care (01) ==
PROVIDERS: PCP Family Medicine; Visit Provider Family Medicine
DX: N89.8 Other specified noninflammatory disorders of vagina (principal)
CPT/HCPCS: 80053; 80061; 82306; 84590; 86592; 86703; 86803; 87491; 87591; 87624; 87625; 88141; 88142; 88175

== ENCOUNTER 2025-06-07 14:59 | Outpatient (CLI) | payer MEDICAID, SELFPAY ==
--- NOTE | 2025-06-07 15:00 | CRLHL7_ITS ---
For Patients: As a result of the Century Cures Act, medical imaging exams and procedure reports are released immediately into your electronic medical record. You may view this report before your referring provider. If you have questions, please contact your health care provider. CLINICAL HISTORY: Left lower quadrant pain COMPARISON: None. TECHNIQUE: 2D preciado-scale ultrasound. In addition, color Doppler and spectral Doppler analysis was performed of the pelvis using a transabdominal and transvaginal approach. Transvaginal imaging performed to better visualize the endometrial stripe and ovaries. FINDINGS: The myometrium has a normal uniform echotexture. The uterus measures 8.0 x 4.2 x 5.6 cm. The endometrial lining appears normal and measures 7.2 mm in thickness. The right ovary measures 4.9 x 2.7 x 4.0 cm in size and the left ovary measures 3.9 x 2.3 x 2.8 cm. The ovaries demonstrate normal arterial and venous blood flow on color Doppler and spectral Doppler analysis. There are no suspicious fluid collections within the cul-de-sac. IMPRESSION: Unremarkable. Dictated by Khanh Blood MD @ 06/08/2025 7:30:02 PM (Electronically Signed)
== END 2025-06-07 15:00 | disposition home or self-care (01) ==
LOC: US 15:00
PROVIDERS: PCP Family Medicine; Visit Provider Family Medicine
DX: R10.32 Left lower quadrant pain (principal)
CPT/HCPCS: 76830; 76856; 93976